=== PATIENT | female | born 1995 | race Caucasian/White ===

== ENCOUNTER 2017-07-26 01:08 | Emergency (ER) | payer OTHER ==
[2017-07-26 01:28] LABS: Pregnancy Test - Urine (BHCG) Negative (Negative); Pregu Control Background? CLEAR/WHITE (CLR/WHITE); Pregu Control Bar Appear? YES (CONTROL BAR); Specific Gravity 1.025 (1.002-1.036)
[2017-07-26] MEDS ORDERED: Ondansetron ODT 4 MG TAB ONE (01:38)
[2017-07-26] MEDS ORDERED: Ketorolac Tromethamine 30 MG/ML VIAL ONE (01:38)
[2017-07-26] MEDS ORDERED: Oseltamivir 75 MG CAP ONE (01:44)
== END 2017-07-26 01:51 | disposition home or self-care (01) ==
LOC: MADERS 01:08
DX: J11.1 Influenza due to unidentified influenza virus with other respiratory manifestations (principal); F17.210 Nicotine dependence, cigarettes, uncomplicated
CPT/HCPCS: 81025; 96372; J1885; Q0162